=== PATIENT | male | born 1955 | race Caucasian/White ===

== ENCOUNTER 2019-12-13 11:22 | Emergency (ER) | payer BC, SELFPAY ==
[2019-12-13 11:33] VITALS: BP 149/83; PULSE 67; RESP 16; TEMP 36.6; O2SAT 99
--- NOTE | 2019-12-13 11:33 | ED.NECK ---
HPI - Neck Pain/Injury General Chief Complaint: Neck Pain/Injury Stated Complaint: Neck Pain Time Seen by Provider: 12/13/19 11:33 Source: patient and RN notes reviewed History of Present Illness HPI Narrative: Patient is a 64-year-old male that presents the urgent care with complaints of right-sided neck pain. Patient states that he has a history of arthritis in the neck and is typically not having any pain from it. However, patient states that he slept on it weird Monday and is causing intermittent pain since then. Patient has been using ibuprofen without much relief. States that it increases with movement. Denies any recent fall, trauma, known injury. No other acute complaints. No acute distress noted. Patient read the plan of care. Related Data Home Medications Medication Instructions Recorded Confirmed finasteride 5 mg PO DAILY 12/13/19 12/13/19 Allergies Allergy/AdvReac Type Severity Reaction Status Date / Time Penicillins Allergy Unknown Unknown Verified 12/13/19 11:41 Review of Systems Review of Systems: Narrative: CONSTITUTIONAL: Denies fever, chills, or sweats. EYES: Denies visual changes, redness, or discharge. ENT: Denies rhinorrhea, congestion, sore throat, or otalgia. Reports of right posterior neck pain CARDIOVASCULAR: Denies chest pain, palpitations, or edema. RESPIRATORY: Denies cough or dyspnea. GASTROINTESTINAL: Denies abdominal pain, nausea, vomiting, or diarrhea. GENITOURINARY: Denies dysuria or hematuria. SKIN: Denies rash or itching. MUSCULOSKELETAL: Denies back pain, joint pain, or myalgia. NEUROLOGIC: Denies headache, numbness, or weakness. All other systems reviewed are negative, except as documented in HPI. PMFSH Social History Social History Smoking status: Former smoker Second hand tobacco smoke exposure: No Smoking end date: 10/30/92 Alcohol intake: current Comments At the time of my signature, I reviewed and agree with the nursing past medical, surgical, social, and family history. There is no relevant family history pertinent to the patient complaint. Exam Narrative: Exam Narrative: GENERAL: This is a well-nourished, well-developed patient, in no apparent distress. HEAD: normocephalic, atraumatic. EYES: PERRL. Sclera clear/white. Vision is grossly intact. EARS: External ears normal NOSE: External nose normal with no obvious nasal discharge THROAT: Mucous membranes moist, posterior pharynx clear. NECK: Neck supple, normal range of motion to cervical spine. Mild right posterior cervical tenderness without crepitus or obvious deformity CARDIOVASCULAR: Regular rate and rhythm without murmurs, gallops, or rubs. RESPIRATORY: Clear to auscultation. Breath sounds equal bilaterally. No wheezes, rales, or rhonchi. SKIN: warm, intact with no suspicious lesions or rash, good texture and turgor. NEURO: awake, alert, and oriented to person, place and time. There were no obvious focal neurologic abnormalities. EXTREMITIES: No clubbing, cyanosis, or edema. Course Vital Signs Vital signs: Vital Signs Temperature 97.8 F 12/13/19 11:33 Pulse Rate 67 12/13/19 11:33 Respiratory Rate 16 12/13/19 11:33 Blood Pressure 149/83 H 12/13/19 11:33 Pulse Oximetry 99 12/13/19 11:33 Temperature 97.8 F 12/13/19 11:33 Pulse Rate 67 12/13/19 11:33 Respiratory Rate 16 12/13/19 11:33 Blood Pressure 149/83 H 12/13/19 11:33 Pulse Oximetry 99 12/13/19 11:33 Reviewed?patient is informed that they may have pre-hypertension or hypertension based on a blood pressure reading in the department. I recommend the patient call the primary care provider listed on their discharge instructions or a physician of their choice this week to arrange follow-up for further evaluation of possible pre-hypertension or hypertension. MDM - Neck Pain/Injury MDM Narrative Medical decision making narrative: Advised the patient to continue using ibuprofen as needed for pain. Complete steroid r
== END 2019-12-13 12:01 | disposition home or self-care (01) ==
PROVIDERS: Emergency Provider Nurse Practitioner Family
DX: S16.1XXA Strain of muscle, fascia and tendon at neck level, initial encounter (principal); X58.XXXA Exposure to other specified factors, initial encounter; M47.812 Spondylosis without myelopathy or radiculopathy, cervical region; E78.00 Pure hypercholesterolemia, unspecified; I10 Essential (primary) hypertension; N40.0 Benign prostatic hyperplasia without lower urinary tract symptoms; Z98.52 Vasectomy status
CPT/HCPCS: 99213; G0463

== ENCOUNTER 2023-08-14 11:14 | Outpatient (CLI) | payer MEDICARE, SELFPAY ==
--- NOTE | ~2023-08-14 | US_ITS ---
EXAMINATION: US venous doppler LE RT DATE: 08/14/2023 12:01 INDICATION: Right lower limb pain and palpable lump TECHNIQUE: Grayscale ultrasound images without and with compression and Doppler ultrasound images of the right lower extremity veins were obtained. COMPARISON: None. FINDINGS: The visualized portions of right common femoral vein, profunda (deep) femoral vein, femoral vein, pop liteal vein, peroneal trunk, posterior tibial veins, peroneal veins, gastrocnemius vein and greater s aphenous vein outflow are patent. There is a thrombosed serpiginous subcutaneous varicose vein withou t evident internal flow on color Doppler along the medial aspect of the mid right calf at the area of concern. IMPRESSION: 1. No deep venous thrombosis in the right lower limb. 2. Palpable lump corresponds to a thrombosed serpiginous subcutaneous varicose vein at the medial mid right calf. Reviewed, dictated and finalized at location A.
== END 2023-08-14 11:15 | disposition home or self-care (01) ==
PROVIDERS: PCP Family Medicine; Visit Provider Nurse Practitioner
DX: M79.604 Pain in right leg (principal)
CPT/HCPCS: 93971

== ENCOUNTER 2023-11-03 08:14 | Outpatient (CLI) | payer MEDICARE, SELFPAY ==
--- NOTE | ~2023-11-03 | US_ITS ---
Ultrasound of the Abdominal Aorta INDICATION: Screening for cardiovascular disorder TECHNIQUE: Grayscale, color Doppler, and pulsed Doppler images of the aorta and common iliac arteries were obtained. COMPARISON: None. FINDINGS: Maximum vascular dimensions are as follows: Proximal aorta: 2.2 cm Mid aorta: 2.1 cm Distal aorta: 1.9 cm Right common iliac artery: 1.0 cm Left common iliac artery: 1.2 cm There is no evidence of abdominal aortic aneurysm. IMPRESSION: No evidence for abdominal aortic aneurysm. Reviewed, dictated and finalized at location M. 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
== END 2023-11-03 08:15 | disposition home or self-care (01) ==
LOC: ANHIMG 08:15
PROVIDERS: PCP Family Medicine; Visit Provider Family Medicine
DX: Z13.6 Encounter for screening for cardiovascular disorders (principal); Z87.891 Personal history of nicotine dependence
CPT/HCPCS: 76706

== ENCOUNTER 2024-10-14 11:07 | Outpatient (CLI) | payer MEDICARE, SELFPAY ==
--- NOTE | ~2024-10-14 | XR_ITS ---
XR cervical spine 4-5V Ordering provider: Sonja Newberry MD History: . CERVICALGIA . Comparison: None. FINDINGS: VERTEBRAL BODIES: Normal height and alignment. No visible fracture or subluxation. The dens is intact . DISK SPACES: Narrowing of the disc C5-C6 and C6-C7. Multilevel facet joint disease. Multilevel uncove rtebral joint osteoarthritic changes. PARASPINOUS SOFT TISSUES: No prevertebral soft tissue swelling. IMPRESSION: No acute osseous abnormality cervical spine. Multilevel degenerative disc disease. Reviewed, dictated and finalized at location A. VIOL REPAIRER
== END 2024-10-14 11:08 | disposition home or self-care (01) ==
LOC: GOSHIMG 11:08
PROVIDERS: PCP Family Medicine; Visit Provider Family Medicine
DX: M50.30 Other cervical disc degeneration, unspecified cervical region (principal)
CPT/HCPCS: 72050

== ENCOUNTER 2025-05-01 09:18 | Emergency (ER) | payer MEDICARE, SELFPAY ==
--- NOTE | ~2025-05-01 | XR_ITS ---
HISTORY: pain COMPARISON: None TECHNIQUE: 2 views of the right hip FINDINGS: No acute fracture or dislocation is identified. Superior lateral sclerosis of the femoral acetabular joint space is present consistent with osteoarth ritis. Degenerative disease within the visualized portion of the lower lumbar spine. Age-appropriate mineralization. IMPRESSION: Degenerative disease without acute fracture or dislocation Reviewed, dictated and finalized at location A.
--- OUTSIDE RECORDS SUMMARY | 2025-05-01 09:22 | XMS_ITS | Clinical Summary ---
Author Organization [facility] Address [address] [facility] [address] Phone Care Team Providers Care Protohistorian Name Role Phone Netta Newberry MD Primary Care Provider Allergies No known active allergies Medications No known medications Family History Medical History Relation Name Comments Cancer Father colon, leukemia Cirrhosis Mother Relation Name Status Comments Father Mother Social History Tobacco Use Types Packs/Day Years Used Date Smoking Tobacco: Former Cigarettes 1 15 0 03/23/1977 - 03/23/1992 Smokeless Tobacco: Never Alcohol Use Standard Drinks/Week Comments Yes 14 (1 standard drink = 0.6 oz pu re alcohol) Sex and Gender Information Value Date Recorded Sex Assigned at Not on file Legal Sex Male 11:40 PM CDT Gender Identity Not on file Sexual Orientation Not on file Last Filed Vital Signs Vital Sign Reading Time Taken Comments Blood Pressure 126/78 05/28/2018 6:38 AM CDT Pulse 53 05/28/2018 6:38 AM CDT Temperature 36 C (96.8 F) 05/28/2018 6:38 AM CDT Respiratory Rate 11 05/28/2018 6:38 AM CDT Oxygen Saturation 100% 05/28/2018 6:38 AM CDT Inhaled Oxygen Concentration - - Weight 83.9 kg (185 lb) 03/23/2018 1:00 PM CDT Height 175.3 cm (5' 9) 03/23/2018 1:00 PM CDT Body Mass Index 27.32 03/23/2018 1:00 PM CDT Plan of Treatment Health Maintenance Due Date Last Done Comments Hepatitis C Virus (HCV) Screening 1955 TdaP Immunization 1955 Cologuard 2006 Immunochemical Fecal Occult Blood 2006 Pneumococcal Immunization (5 0+ years) (1 of 1 - PCV) 2006 Zoster Immunization (1 of 2) 2006 PSA Discussion 2011 Colonoscopy 05/28/2023 05/28/2018, 05/13/2013 Colorectal Cancer Screening 05/28/2023 Influenza Immunization (#1) 2024 SARS-COV-2 Immunization ( - season) 2024 Respiratory Syncytial Virus (RSV) Immunization (Adult) (1 - 1-dose 75+ series) 2031 Hepatitis B Immunization Aged Out No longer eligible based on patient's age to complete this topic Meningococcal Immunization (ACWY) Aged Out No longer eligible b ased on patient's age to complete this topic Rotavirus Immunization Aged Out No lo nger eligible based on patient's age to complete this topic Procedures Procedure Name Priority Date/Time Associated Diagnosis Comments COLONOSCOPY Routine 05/13/2013 from Last 3 Months or Most Recently Relevant to Health Maintenance Results * COLONOSCOPY (05/13/2013) Meek Mantilla DO PROCEDURE/MINOR SURGICAL ORDERA BLES Final Result from Last 3 Months or Most Recently Relevant to Health Maintenance Insurance [employer] Care Teams Protohistorian Relationship Specialty Start Date End Date Netta Newberry MD PCP - General Family Medicine 05/24/18
--- OUTSIDE RECORDS SUMMARY | 2025-05-01 09:22 | XMS_ITS | Patient Health Record ---
Author Organization [facility] Address [address] [place] [address] Care Team Providers Care Mis Manager Name Role Phone Janneth Naylor Unavailable [phone] Antelmo Deshpande Unavailable [phone] Danica Baljinder Unavailable [phone] Allergies Allergen (clinical drug ingredient) Drug/Non Drug Allergy documented on EMR Reaction Allergy Type Onset Date Status Substance with penicillin structure and antibacterial mechanism of action (substance) Penicillins Unknown Drug Allergy 03/15/2024 Active Reason For Referral No Information Medications Medication SIG (Take, Route, Frequency, Duration) Notes Start Date End Date Status VITAMIN D3 50 MCG (2,000 UNIT) TABLET *Reorder from R-Squared for eRx and Interaction Alerts* 03/15/2024 Active Atorvastatin Calcium 10 MG Oral 03/15/2024 Active Escitalopram Oxalate 10 MG 1 tablet Orally Once a day; Duration: 90 days Active Tamsulosin HCl 0.4 MG Oral 03/15/2024 Active ALPRAZolam 0.25 MG 1 tablet Orally Twice a day 01/31/2025 Active Finasteride 5 MG Oral 03/15/2024 Ac tive Social History Tobacco Use: Social History Observation Description Date Details (start date - stop date) Former Smoker NA - NA Sex Assigned At : Social History Observation Description Sex Assigned At Male Tobacco Control (Standard) Question Answer Notes Tobacco use: Former smoker How long has it been since you last smoked? Grea ter than 10 years AUDIT-C (Standard) Question Answer Notes Points 5 Did you have a drink contain ing alcohol in the past year? Yes How often did you have six o r more drinks on one occasion in the past year? Never (0 point) How many drinks did you have on a typical day when you were drinking in the past year? 3 or 4 drinks (1 point) How often did you have a dri nk containing alcohol in the past year? Daily or almost daily (4 points) Problems Problem Type SNOMED Code ICD Code Onset Dates Problem Status W/U Status Risk Notes Problem Generalized anxiety disorder (45159707) Generalized anxiety disorder (F41.1) Active confirmed Problem Severe recurrent major depression without psychotic features (64070491) Severe episode of recurrent major depressive disorder, without psychotic features (F33.2) Active confirmed Problem Social phobia (62120950) Social phobia (F40.10) Active confirmed Vital Signs Heart Rate 70 /min 01/31/2025 Height-cm 175.26 cm 01/31/2025 Blood pressure diastolic 74 mm Hg 01/31/2025 Weight-kg 87.09 kg 01/31/2025 Height 69.00 in 01/31/2025 Blood pressure systolic 123 mm Hg 01/31/2025 Weight 192 lbs 01/31/2025 BMI 28.35 kg/m2 01/31/2025 Encounters Encounter Location Date Provider Diagnosis [facility] [address] [facility] [address] [place] [address] 06/14/2024 Thena Charlee Major depressive disorder, recurrent, moderate F33.1 ; Generalized anxiety disorder F41.1 and Other difficulties with micturition R39.198 [facility] [employer] [address] [place] [address] 12/16/2024 Baljinder Clubb Generalized anxiety disorder F41.1 and Severe episode of recurrent major depressive disorder, without psychotic features F33.2 [facility] [address] [place] [address] 12/31/2024 Baljinder Clubb Generalized anxiety disorder F41.1 [facility] [address] [place] [address] 01/31/2025 Janneth Naylor Encounter for screen ing for cardiovascular disorders Z13.6 ; Generalized anxiety disorder F41.1 ; Encounter for screening for depression Z13.31 and Social phobia F40.10 [facility] [address] [place] [address] 12/16/2024 Thena Charlee [facility] [address] [place] [address] 12/16/2024 Antelmo Deshpande Generalized anxiety disorder F41.1 [facility] [employer] [address] [place] [address] 01/31/2025 Janneth Naylor Assessments Encounter Date Diagnosis (ICD Code) Assessment Notes Treatment Notes Treatment Clinical Notes Section Notes 12/16/2024 Generalized anxiety disorder (ICD-10 - F41.1) 12/16/2024 Generalized anxiety disorder (ICD-10 - F41.1) 12/16/2024 Severe episode of recurrent major depressive disorder, without psychotic features (ICD-10 - F33.2) Assessment and plan reviewed with patient Call for problems with medication, side effects or need for dosage change Compliance issues reviewed Discussed the risks/benefits of this medication Discussed medication side effects Return if symptoms worsen Treatment options reviewed. discussed that it can take weeks to see full therapeutic effects of psychotropic medications. discussed when to seek emergency services. discussed crisis prevention [facility]. 12/31/2024 Generalized anxiety disorder (ICD-10 - F41.1) Assessment and plan reviewed with patient Call for problems with medication, side effects or need for dosage change Compliance issues reviewed Discussed the risks/benefits of this medication Discussed medication side effects Return if symptoms worsen Treatment options reviewed. discussed that it can take weeks to see full therapeutic effects of psychotropic medications. discussed when to seek emergency services. discussed crisis prevention [facility]. 01/31/2025 Generalized anxiety disorder (ICD-10 - F41.1) Assessment and plan reviewed with patient Call for problems with medication, side effects or need for dosage change Compliance issues reviewed Discussed the risks/benefits of this medication Discussed medication side effects Return if symptoms worsen Treatment options reviewed. discussed that it can take weeks to see full therapeutic effects of psychotropic medications. discussed when to seek emergency services. discussed crisis prevention [place] [phone]. 01/31/2025 Encounter for screening for cardiovascular disorders (ICD-10 - Z13.6) 06/14/2024 Major depressive disorder, recurrent, moderate (ICD-10 - F33.1) 06/14/2024 Generalized anxiety disorder (ICD-10 - F41.1) 06/14/2024 Other difficulties with micturition (ICD-10 - R39.198) 01/31/2025 Encounter for screening for depression (ICD-10 - Z13.31) 01/31/2025 Social phobia (ICD-10 - F40.10) 12/16/2024 Other 1. Major Depressive Disorder (MDD) - PHQ-9 score: 24 - Patient reports not currently feeling depressed, but anxiety contributes to depressive symptoms. - Plan: a. Monitor patient's mood. b. restarting escitalopram at 5 mg daily c. Encourage patient to consider therapy for additional support. 2. Generalized Anxiety Disorder (JEROMY) - JEROMY-7 score: 20 - Patient recently restarted escitalopram after brief discontinuation. - Plan: a. Prescribe propranolol 20 mg as needed for anxiety. b. Instruct to monitor heart rate and not take if below 60 bpm. c. restart escitalopram at 5 mg daily d. encouraged initiation of therapy. 3. Social Phobia - Patient reports anxiety related to social situations and public urination, exacerbated by upcoming [place] trip. - Plan: a. Consider therapy. b. start propranolol use as preventative measure for social anxiety. 4. Follow-up and Monitoring - Plan: a. Schedule follow-up appointment in one month or as needed. b. Assess propranolol effectiveness and discuss concerns or treatment adjustments. c. Encourage use of [facility] for direct communication. d. Provide crisis prevention hotline number (247) for emergencies. 12/31/2024 Other 1. Insomnia - Patient reports difficulty falling asleep and frequent awakenings around 3 AM. - Plan: a. Continue escitalopram as prescribed, monitor for improvement in sleep quality. b. Encourage patient to maintain good sleep hygiene practices. 2. Anxiety - Patient experiences heightened anxiety in social situations and when away from home, with a persistent feeling of dread. - Plan: a. Continue escitalopram, monitor for improvement in anxiety symptoms. b. Consider prescribing a short-acting anxiolytic (e.g., Ativan) for use during trips or high-anxiety situations. c. Encourage patient to stay on escitalopram consistently to avoid fluctuations in symptoms. 3. Depression - JEROMY score improved from 20 to 14, PHQ-9 score improved from 24 to 10 since last visit in 2017. - Plan: a. Continue escitalopram, monitor for further improvement in depressive symptoms. b. Reinforce the importance of staying on medication consistently to prevent relapse. 4. Social Phobia - Patient reports increased anxiety in social situations and when away from home. - Plan: a. Refer patient to therapy, specifically exposure therapy with [facility] if possible. b. Recommend patient to call and schedule a walk-in therapy appointment with available therapists. c. Encourage patient to consider family therapy with Abbie. 5. Medication Management - Patient has stopped taking propranolol due to perceived lack of efficacy and potential interaction with ibuprofen for arthritis. - Plan: a. Discontinue propranolol. b. Monitor patient's response to escitalopram and consider adjusting the dose if necessary. c. Educate patient on the importance of medication adherence and potential side effects or interactions. 6. Therapy Referral - Patient has expressed interest in therapy for anxiety and social phobia. - Plan: a. Refer patient to [facility] for exposure therapy, if possible. b. Encourage patient to call and schedule a walk-in therapy appointment with available therapists. c. Recommend [facility]'s practice as an alternative option for therapy services. 01/31/2025 Other Start alprazolam 0.25mg PRN for social phobia, discussed risks associated with consistant care home use. will send in 10 tablets at a time, only to use during travel/social events. Patient educated on all medications including potential benefits, side effects, risks. Educated on proper dosing schedule and importance of compliance. [place] PDMP report checked and consistent with prescription history, no controlled substance prescriptions from other providers. Referred to Dr Tatiana Alcazar for therapy/exposure counseling -Assessment and treatment plan reviewed with patient. -Compliance with treatment plan importance discussed. -Discussed the risks/benefits of this medication -Discussed medication side effects. -Contact office if symptoms worsen. -Discussed that it can take up to 6-8 weeks to see full therapeutic effects of psychotropic medications. -Crisis prevention hotline 629. Plan Of Treatment No Information Insurance Providers Payer Name Payer Address Payer Phone Subscriber Number Group Number Insured Name Patient Relationship to Insured Coverage Start Date Coverage End Date [employer] Medicare Replacemen t/Advantag e - P[place] [address] [address] [place] [address] [id number] SONIA CARLISLE Self - patient is the insured Medical (General) History Medical History History ICD Code Problems: Difficulty passing urine Generalized anxiety disorder Moderate recurrent major depression Recurrent major depression , Past Psychiatric History: Anxiety Disord er,Phobias Surgical History Surgery Date(Month/Year) Reconstruction procedure ([id number]) fac e Vasectomy (10984521) Appendectomy (88519) 10/18/1968
--- OUTSIDE RECORDS SUMMARY | 2025-05-01 09:22 | XMS_ITS | Clinical Summary ---
Author Organization [facility] Address [address] [place] [address] Care Team Providers Care Personal Care Assistant Name Role Phone Netta Newberry MD Primary Care Provider Allergies No known active allergies Medications tamsulosin (FLOMAX) 0.4 mg extended release capsule Take 1 capsule (0.4 mg total) by mouth daily 12/29/2022 Active finasteride (PROSCAR) 5 mg tablet Take 1 tablet (5 mg total) by mouth daily 12/29/2022 Active escitalopram (LEXAPRO) 5 mg tablet Take 1 tablet (5 mg total) by mouth daily Active atorvastatin (LIPITOR) 20 mg tablet Take 1 tablet (20 mg total) by mouth daily Active cholecalciferol (VITAMIN D-3) 15379 unit capsule Take 1 capsule (10,000 Units total) by mouth daily Active Active Problems Problem Noted Date Diagnosed Date Varicose veins of right lower extremity with inf lammation 11/16/2023 Assessment & Plan (11/16/2023 11:32 AM SOCIAL SCIENCE PROFESSOR): Impression: Patient has bulky varicosities to the right lower extremity. He remains asymptomatic. Patient has been compliant with utilizing compression therapy. Plan: Patient has no interest in surgical intervention as his varicose veins are not causing pain. -patient to follow-up on an as-needed basis. Recommend patient to call the office for any discomfort to his lower extremities. -continue utilizing compression stockings. Other hyperlipidemia 11/16/2023 Assessment & Plan (11/16/2023 11:31 AM SOCIAL SCIENCE PROFESSOR): Impression: Chronic and stable. Plan: Continue Lipitor Surgical History Surgery Date Site/Laterality Comments APPENDECTOMY FRACTURE SURGERY Medical History Medical History Date Comments BPH (benign prostatic hyperplasia) Social History Tobacco Use Types Packs/Day Years Used Date Smoking Tobacco: Former Cigarettes Tobacco Cessation:Counseling Given: Not Answered Personal Safety Answer Date Recorded Getting School Help Needed Not on file 10/12 Sex and Gender Information Value Date Recorded Sex Assigned at Not on file Legal Sex Male 11:04 AM SOCIAL SCIENCE PROFESSOR Gender Identity Male 01/05/2023 10:39 AM SOCIAL SCIENCE PROFESSOR Sexual Orientation Not on file Obstetrics History Last Filed Vital Signs Vital Sign Reading Time Taken Comments Blood Pressure 124/80 11/15/2023 10:12 AM SOCIAL SCIENCE PROFESSOR Pulse 68 11/15/2023 10:12 AM SOCIAL SCIENCE PROFESSOR Temperature 37 C (98.6 F) 01/05/2023 11:06 AM SOCIAL SCIENCE PROFESSOR Respiratory Rate - - Oxygen Saturation 98% 11/15/2023 10:12 AM SOCIAL SCIENCE PROFESSOR Inhaled Oxygen Concentration - - Weight 83 kg (183 lb) 01/05/2023 11:06 AM SOCIAL SCIENCE PROFESSOR Height 175.3 cm (5' 9) 01/05/2023 11:06 AM SOCIAL SCIENCE PROFESSOR Body Mass Index 27.02 01/05/2023 11:06 AM SOCIAL SCIENCE PROFESSOR Plan of Treatment Health Maintenance Due Date Last Done Comments Colon Cancer Screening-Colonoscopy 1955 Depression Screening 1955 Fall Risk Assessment 1955 Hepatitis C Screening 1955 Prostate Cancer Screening-PSA 1956 Hepatitis B Screening 1974 Abdominal Aortic Aneurysm (A AA) Screen 2021 Well Visit 65+ 2021 Covid-19 Vaccine (2023-2 5 season) 2024 08/16/2022, 06/06/2022, 08/30/2021, Additional history exists Influenza Vaccine (Season Ended) 2025 08/16/2022, 08/18/2021, 08/10/2020, Additional history exists DTaP/Tdap/Td Vaccine (3 - Td or Tdap) 09/29/2030 09/29/2020, 04/05/2010 Zoster Vaccine Completed 12/09/2021, 10/04/2021 Pneumococcal vaccine 65+ Completed 01/05/2022 Insurance [employer] CHOICE MEDICARE PPO [employer] CHOICE MEDICARE PPO Care Teams Personal Care Assistant Relationship Specialty Start Date End Date Netta Newberry MD PCP - General Family Practice 01/02/23
--- OUTSIDE RECORDS SUMMARY | 2025-05-01 09:22 | XMS_ITS | Clinical Summary ---
Author Organization [facility] Address [address] [place] [address] Care Team Providers Care Field Crop Ii Farmworker Name Role Phone Remi Hunt MD Primary Care Provider [phone] Source Comments [facility] Get[employer],non-owned Affiliates and Associated Physician Practices is amultiple site organization consisting of ambulatory clinics and hospital sitesin [place], [place], [place] and [place]. This disclosure is being madepursuant to the Care Everywhere program and may not contain all information available regarding this patient. 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 Gender Identity Not on file Sexual Orientation Not on file Plan of Treatment Health Maintenance Due Date Last Done Comments COLOGUARD (AGES 45-75) - COL ON CA SCREENING 1955 COLON MONITORING 1955 COLONOSCOPY - COLON CA SCREENING 1956 CT COLONOGRAPHY - COLON CA SCREENING 1955 Colorectal Cancer Screening 1955 FIT - COLON CA SCREENING 1955 FLEX SIG - COLON CA SCREENING 1955 LIPID TESTING 1955 HEPATITIS C SCREENING 05/06/1974 DTAP/TDAP/TD VACCINES (1 - Tdap) 1975 PNEUMOCOCCAL VACCINE 50+ (1 of 1 - PCV) 2006 ZOSTER VACCINE (1 of 2) 2006 COVID-19 VACCINE ( - 2023-2 5 season) 2024 DEPRESSION SCREENING 10/30/2024 INFLUENZA VACCINE (Season Ended) 2025 Respiratory Syncytial Virus (RSV) Vaccine Pt: or over 60 yrs (1 - 1-dose 75+ series) 2031 HEPATITIS B VACCINE Aged Out No longe r eligible based on patient's age to complete this topic HIB VACCINE Aged Out No longer eligi ble based on patient's age to complete this topic HPV VACCINE Aged Out No longer eligi ble based on patient's age to complete this topic MENINGOCOCCAL (Group B) VACC INE SHARED DECISION-MAKING Aged Out No longer eligibl e based on patient's age to complete this topic MENINGOCOCCAL GROUPS A/C/Y/W VACCINE Aged Out No longer eligible b ased on patient's age to complete this topic Insurance [email or web address] Care Teams Field Crop Ii Farmworker Relationship Specialty Start Date End Date Reim Hunt MD [address] [place] [address] PCP - General 06/26/18
--- OUTSIDE RECORDS SUMMARY | 2025-05-01 09:22 | XMS_ITS | Referral Summary ---
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 Plan: Continue Lipitor Social History Tobacco Use Types Packs/Day Years Used Date Smoking Tobacco: Former Cigarettes Tobacco Cessation:Counseling Given: Not Answered Personal Safety Answer Date Recorded Getting School Help Needed Not on file 10/12 Sex and Gender Information Value Date Recorded Sex Assigned at Not on file Legal Sex Male 11:04 AM GARMENT SEWING MACHINE OPERATOR Gender Identity Male 01/05/2023 10:39 AM GARMENT SEWING MACHINE OPERATOR Sexual Orientation Not on file Last Filed Vital Signs Vital Sign Reading Time Taken Comments Blood Pressure 124/80 11/15/2023 10:12 AM GARMENT SEWING MACHINE OPERATOR Pulse 68 11/15/2023 10:12 AM GARMENT SEWING MACHINE OPERATOR Temperature 37 C (98.6 F) 01/05/2023 11:06 AM GARMENT SEWING MACHINE OPERATOR Respiratory Rate - - Oxygen Saturation 98% 11/15/2023 10:12 AM GARMENT SEWING MACHINE OPERATOR Inhaled Oxygen Concentration - - Weight 83 kg (183 lb) 01/05/2023 11:06 AM GARMENT SEWING MACHINE OPERATOR Height 175.3 cm (5' 9) 01/05/2023 11:06 AM GARMENT SEWING MACHINE OPERATOR Body Mass Index 27.02 01/05/2023 11:06 AM GARMENT SEWING MACHINE OPERATOR Plan of Treatment Not on file Insurance [employer] MED[employer] PPO [employer] PPO Care Teams Golf Ball Molder Relationship Specialty Start Date End Date Netta Newberry MD PCP - General Family Practice 01/02/23
--- OUTSIDE RECORDS SUMMARY | 2025-05-01 09:22 | XMS_ITS | Encounter Summary ---
Author Organization [facility] Address [address] [place] [address] Care Team Providers Care Quality Head Name Role Phone Remi Hunt MD Primary Care Provider [phone] Encounter Details Date Type Department Care Team (Late st Contact Info) Description 06/27/2018 Lab Requisition [facility] [address] [place] [address] Chilango Cain MD [address] [phone] Social History Tobacco Use Types Packs/Day Years Used Date Smoking Tobacco: Never Assessed Sex and Gender Information Value Date Recorded Sex Assigned at Not on file Legal 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 Gender Identity Not on file Sexual Orientation Not on file documented as of this encounter Plan of Treatment Not on file documented as of this encounter Procedures Procedure Name Priority Date/Time Associated Diagnosis Comments DERMATOPATHOLOGY Routine 06/26/2018 12:0 0 AM CDT documented in this encounter Results * DERMATOPATHOLOGY (06/26/2018 12:00 AM CDT) Case Report Dermatopathology Report Case: [id number] Authorizing Provider: Chilango Cain MD Collected: 06/26/2018 12:00 AM Pathologist: Shilpi Mcknight MD Received: 06/27/2018 06:44 AM Specimen: Skin, left upper abdomen 8 1:37 PM CDT DERMATOPATHOLOGY LABORATORY Final Diagnosis Specimen A. SKIN, left upper abdomen: PIGMENTED SEBORRHEIC KERATOSIS (L82.1) 8 1:37 PM CDT DERMATOPATHOLOGY LABORATORY at 1337 CDT Clinical History ISK/SK R/O melanocytic lesion. 8 1:37 PM CDT DERMATOPATHOLOGY LABORATORY Gross Description Specimen A: Received is one formalin filled container labeled with the patient's name and designated left upper abdomen. The specimen consists of a shave biopsy measuring [id number]. Jar 0. 8 1:37 PM CDT DERMATOPATHOLOGY LABORATORY Microscopic Description Specimen A. SKIN, left upper abdomen: Sections show an acanthotic lesion composed of relatively uniform keratinocytes. There is hyperkeratosis and pseudo horn cysts. Pigment is present in the keratinocytes composing this tumor. 8 1:37 PM CDT DERMATOPATHOLOGY LABORATORY Disclaimer An external and internal positive and negative controls are appropriate for the histochemical, immunohistochemical and immunofluorescence stain(s) in this case (if any), except where stated explicitly. The performance characteristics of the stain(s) cited in this report were developed and its performance characteristic determined by the Dermatopathology Laboratory at [facility]. These tests need not be, and therefore are not, approved by the [place] Food and Drug Administration. The tests are used for clinical purposes. Billing Codes Specimen Charges Stain Charges 85480 1 8 1:37 PM CDT DERMATOPATHOLOGY LABORATORY Embedded Images 8 1:37 PM CDT DERMATOPATHOLOGY LABORATORY Pathology/Cytolog y TISSUE SPECIMEN FROM SKIN / Unknown 06/26/2018 06/27/2018 6:44 AM CDT us Chilango Cain MD LAB - PATHOLOGY/CYTOLOGY ORDERAB LES Final Result DERMATOPATHOLOGY LABORATORY [facility] - Department of Dermatology [address] [place] [address], [address]th Floor Lab B [address] [phone] documented in this encounter Visit Diagnoses Not on filedocumented in this encounter Care Teams Quality Head Relationship Specialty Start Date End Date Remi Hunt MD [address] [place] [address] PCP - General 06/26/18 documented as of this encounter
[2025-05-01 09:30] VITALS: BP 141/66; PULSE 62; RESP 20; TEMP 36.6; O2SAT 100
--- NOTE | 2025-05-01 09:57 | ED_ITS ---
HPI - Extremity Problem General Chief complaint: Extremity Problem,Nontraumatic Stated complaint: Right side hip pain Time Seen by Provider: 05/01/25 09:58 Source: patient Mode of arrival: ambulatory Limitations: no limitations History of Present Illness HPI Narrative: 69 y/o male presented for c/o right hip pain x3 weeks. Pain radiates from posterior hip to right anterior thigh. to knee Says for the last 2-3 days the pain is worse. He had been taking an occasional tylenol or ibuprofen since onset, but had been able to tolerate golfing. Pt took ibuprofen 800mg yesterday. Denies specific injury. Says he noticed the pain mostly while golfing, and had played 3 times in one week when it started. Denies pain radiating to the foot, numbness, tingling, weakness, temp change, or discoloration of the right leg. Related Data Home Medications ?Medication ?Instructions ?Recorded ?Confirmed ?Last Taken ?Type escitalopram oxalate 10 mg tablet 10 mg PO DAILY 04/14/25 04/14/25 Unknown History Allergies Allergy/AdvReac Type Severity Reaction Status Date / Time tramadol AdvReac Intermediate Dizziness Verified 05/01/25 09:46 Review of Systems Review of Systems: CONSTITUTIONAL: Denies body aches, fever, chills EYES: Denies visual changes ENT: Denies rhinorrhea, congestion CARDIOVASCULAR: Denies chest pain, palpitations, or edema. RESPIRATORY: Denies cough or dyspnea. SKIN: Denies rash, itching, or wounds. MUSCULOSKELETAL: reports right hip pain NEUROLOGIC: Denies numbness, tingling, or weakness. All systems reviewed & are unremarkable except as noted in HPI and below PMFSH Past Medical History Medical History Vitamin D deficiency Varicose veins of right lower extremity Depression with anxiety Dyslipidemia BPH w/o urinary obs/LUTS Surgical History Surgical History History of plastic surgery (1979) 1979 from [facility] History of vasectomy (~1989) age mid 30's History of appendectomy (~1966) age 13 Family History Family History Mother Cirrhosis of liver Father Leukemia Social History Social History Smoking status: Former smoker (< 15 pack years) Second hand tobacco smoke exposure: No Smoking end date: 10/30/92 Alcohol intake: current Drinks per week: 12 Substance use: never Substance use type: does not use Lack of Transportation: No Lack of Food: Never True Current Housing: I Have Housing Concerned About Future Housing: No Difficulty Paying Gas/Electric Bills: No Difficulty Paying for Meds: No Currently Unemployed: No Education: Trade/Vocational Certificate Difficulty w/ Childcare or Family Care: No Living arrangements: with family Additional living arrangements comments: Occupation/Education: retired Gender identity (if verbalized by the patient): Male Spiritual care concerns: Yes Agree to blood products: Yes Comments At time of signature, I have reviewed and agree with nursing past medical, surgical, social and family history unless otherwise noted. Please see nursing chart for further information. There is no relevant family history pertinent to the presenting complaint Exam Narrative: GENERAL: Well-appearing CHEST: Speaks in full sentences. No respiratory distress. HEART: Regular rate and rhythm. Normal and equal peripheral pulses. EXTREMITIES: No vpt. RLE has normal strength and sensation, normal range of motion at right hip. No edema, ecchymosis, or discoloration. No point tenderness to the hip. No open wounds. alignment normal, pulse palpable and equal bilaterally, skin warm, dry, pink. Capillary refill less than 3 seconds. SKIN: Warm, dry, no rash. Significant varicose veins to right medial knee and calf. Normal temp and pulses to right foot. NEURO: Alert and oriented x3. PSYCH: Normal mood and affect Course Course Emergency Course: Patient is aware of diagnosis, understands and agrees to treatment plan. Anticipatory guidance given. Patient agrees to follow-up as directed and is aware of reasons to seek care at the emergency department. Portions of this record may have been created with voice recognition software Level of Care: Express Care Visit Vital Signs Vital signs: Vital Signs Temperature 97.9 F 05/01/25 09:30 Pulse Rate 62 05/01/25 09:30 Respiratory Rate 20 05/01/25 09:30 Blood Pressure 141/66 H 05/01/25 09:30 Pulse Oximetry 100 05/01/25 09:30 Oxygen Delivery Room Air 05/01/25 09:30 Temperature 97.9 F 05/01/25 09:30 Pulse Rate 62 05/01/25 09:30 Respiratory Rate 20 05/01/25 09:30 Blood Pressure 141/66 H 05/01/25 09:30 Pulse Oximetry 100 05/01/25 09:30 Oxygen Delivery Room Air 05/01/25 09:30 Reviewed MDM - Extremity (Nontraumatic) MDM Narrative Medical decision making narrative: Discussed physical exam findings. and xray. Pt follows with pcp regarding varicose veins. Advised supportive measures and signs/symptoms to go to the ER. Pt is appropriate for outpt treatment and f/u. Differential Diagnosis Differential diagnosis: Likely other (Hip dislocation, impingement, femur fracture, pelvic fracture, hip bursitis, psoas abscess, piriformis syndrome, septic arthritis, osteoarthritis, avascular necrosis of hip, lumbar radiculopathy) Imaging Data Radiologist's impression: Patient: Srinath Stallings : 1955 MR#: [id number] Age: 69 Acct:[id number] Loc: [facility] ADM Date: 05/01/25Attending Dr: HISTORY: pain COMPARISON: None TECHNIQUE: 2 views of the right hip FINDINGS: No acute fracture or dislocation is identified. Superior lateral sclerosis of the femoral acetabular joint space is present consistent with osteoarthritis. Degenerative disease within the visualized portion of the lower lumbar spine. Age-appropriate mineralization. IMPRESSION: Degenerative disease without acute fracture or dislocation Discharge Plan Discharge Clinical Impression: Acute hip pain Patient Disposition: Home Condition: Stable Instructions: Hip Pain (ED) Additional Instructions: Rest. Avoid running or excessive walking or anything that worsens the symptoms Tylenol 1000mg every 8 hours as needed You can alternate with ibuprofen 800mg Cyclobenzaprine (Flexeril) is a muscle relaxer. Take it as directed. It can cause drowsiness so do not drive or operate machinery until you know how it makes you feel. Alternate ice/heat to the site. Lidocaine or salon pas pain patch or use pain cream like icy/hot or biofreeze. Follow up with your primary care provider as needed in 1 week Go to the ER for worsening symptoms or concerns Patient Language: Indonesian Prescriptions: New cyclobenzaprine 10 mg tablet 10 mg PO TID PRN (Reason: muscle spasm) Qty: 10 0RF ibuprofen 800 mg tablet 800 mg PO TID PRN (Reason: pain) Qty: 15 0RF No Action escitalopram oxalate 10 mg tablet 10 mg PO DAILY tamsulosin 0.4 mg capsule 0.4 mg PO DAILY Qty: 90 2RF finasteride 5 mg tablet 5 mg PO DAILY Qty: 90 1RF atorvastatin [Lipitor] 10 mg tablet 10 mg PO QHS Qty: 90 1RF Follow-up/Referrals: Sonja Newberry MD [Primary Care Provider] -
== END 2025-05-01 11:15 | disposition home or self-care (01) ==
PROVIDERS: Emergency Provider Nurse Practitioner Family; PCP Family Medicine
DX: M25.551 Pain in right hip (principal); Z87.891 Personal history of nicotine dependence; E78.5 Hyperlipidemia, unspecified; N40.0 Benign prostatic hyperplasia without lower urinary tract symptoms; F41.8 Other specified anxiety disorders; Z98.52 Vasectomy status
CPT/HCPCS: 73502; 99213; G0463

== ENCOUNTER 2025-07-03 10:00 | Outpatient (RCR) | payer MEDICARE, SELFPAY ==
--- NOTE | 2025-06-03 15:54 | OPREHPOC ---
Outpatient Therapy Plan of Care This is a Multidisciplinary Plan of Care that may contain components documented by all disciplines (PT, OT, and ST.) PT Problem 1 PT Problem #1 Knowledge Deficit PT Goal 1 Goal / Goal Update Patient to demonstrate independence with HEP for improved self-reliance of symptom management. Target Visit 4 PT Problem 2 PT Problem #2 Pain PT Goal 1 Goal / Goal Update 1. Patient to report an improvement in radiating symptoms by 50% to increase ability to perform ADLs. 2. Patient to report 50% improvement in quantity and quality of sleep. Target Visit 8 PT Problem 3 PT Problem #3 Impaired Strength PT Goal 1 Goal / Goal Update Patient to demonstrate R hip strength >=4+/5 for improved functional stability required for ADLs. Target Visit 8 PT Problem 4 PT Problem #4 Impaired Functional Mobility PT Goal 1 Goal / Goal Update Pt will self-report prolonged walking tolerance >= 30 minutes to facilitate return to PLOF. Target Visit 8
--- NOTE | 2025-06-03 15:54 | PTOPEVAL1 ---
Assessment and note entered by Alice Calabrese, PT Evaluation Information Assessment Status Evaluation Diagnosis pain in R leg ICD-10 Condition Codes (PT) Radiculopathy, lumbar region M54.16,Pain in right hip M25.551 Subjective Information Primary Complaint: R leg Pain Pain description: N/T in the ant R thigh to knee History of current condition: lifted something heavy a few weeks ago and felt a twinge in his back. He didn't have any issues for a few weeks. He was golfing a few times a week without issue until early April. One morning he woke up and was super painful down his R hip and leg. He went to the ER due to the pain and has been doing significantly better with pain. His primary complaint is the unresolved N/T and weakness when doing the stairs. He did have an instance of the R knee giving out when stepping down into a boat. Sxs made worse with: upon waking, prolonged sleeping positions, back stiffness, returning to neutral from forward bent positions Sxs improved with: alt heat/ice/Tylenol/ibuprofen/ muscle relaxer CLOF: has not attempted prolonged walking or golfing >3 weeks, disrupted sleeping PLOF: 50 minute walk/day. golf 3x/wk Reported Pain Level Pain Score Moderate Pain: [place] Additional Pain Score Comments moderate N/T to ant thigh and knee Assessment PT Clinical Summary Pt is a 70 year old male who presents to physical therapy with a primary complaint of numbness and tingling in the R LE >4 weeks. Pt demonstrates R hip weakness, changes in sensation, decreased mobility, changes in patellar reflexes, gait deficit, and decreased flexibility that limit their ability to perform ADLs. Pt will benefit from skilled physical therapy to address the above listed deficits and return to PLOF. HEP instructed and written handout provided, EX tolerated well with no adverse effects to note post-session. Pt was educated on importance of adherence to HEP. Pt was also educated on anatomy, prognosis, home modalities, and PT POC. Plan of Care Interventions Electrical Stimulation,Gait Training,Hot Pack/Cold Pack,Manual Therapy,Mechanical Traction,Neuro Re- education,Therapeutic Activities,Therapeutic Exercise PT Services Indicated Yes Treatment Frequency and 1-2x/wk for 8 sessions Duration These treatments will address the objective and functional deficits as defined above. The patient will be advanced safely and appropriately in order for the patient to progress towards his/her prior level of function. Additional exercises will be introduced and as well as a comprehensive home exercise program upon discharge, if needed, ?to ensure carryover of functional gains achieved in the clinic. This treatment plan has been reviewed and agreement upon by the patient.
--- NOTE | 2025-07-03 10:32 | PTOPDC ---
Assessment and note entered by Alice Calabrese, PT Evaluation Information Assessment Status Discharge Diagnosis pain in R leg ICD-10 Condition Codes (PT) Radiculopathy, lumbar region M54.16,Pain in right hip M25.551 Subjective Information Pt denies the knee giving out since strating therapy. he still notices some weakness in the leg when doing the stairs compared to his other side. Pt reports for the first time in months he woke up yesterday and didn't feel as if anything was wrong. Pt has been able to return to golf without issue and has a routine for exercising that he is comfortable with. Pt reports back to walking 50-60 minutes a day without complaints. He reports the symptoms down his leg have improved by 75% and overall he feels 100% better since his injury. He reports 100% improvement in sleep quality and quantity. Reported Pain Level Pain Score 0: Self Report Assessment PT Clinical Summary Patient's condition has improved overall as evidenced by advancements in symptoms, mobility, strength, and overall functional tolerance to ADLs . Pt has met all therapy goals and is pleased with progress made in PT. Patient to DC from PT this date and continue with updated HEP as instructed. Pt to contact PT or PCP if questions or concerns arise. Plan of Care PT Services Indicated Yes
== END 2025-07-03 15:37 | disposition home or self-care (01) ==
LOC: ANHGOSHPT 10:00
PROVIDERS: PCP Family Medicine; Visit Provider Family Medicine
DX: M79.604 Pain in right leg (principal); M25.551 Pain in right hip
CPT/HCPCS: 97110; 97140; 97161; 97530